=== PATIENT | female | born 1990 | race Caucasian/White ===

== ENCOUNTER → 2023-01-20 | Outpatient (CLI) | payer OTHER | LOC: M RAD 15:02 | PROVIDERS: ATTEND Psychiatry & Neurology Neurology | DX: M71.21 Synovial cyst of popliteal space [Baker], right knee (principal); R20.2 Paresthesia of skin; R53.1 Weakness ==

== ENCOUNTER 2023-03-26 23:28 | Emergency (ER) | payer OTHER ==
[~2023-03-26] VITALS: Ht 160 cm; Wt 76.1 kg
[2023-03-26 23:29] VITALS: BP 113/78
== END 2023-03-27 00:02 | disposition left against medical advice (07) ==
LOC: M ED 23:28
DX: Z53.21 Procedure and treatment not carried out due to patient leaving prior to being seen by health care provider (principal)

== ENCOUNTER 2023-12-05 08:04 | Day surgery (SDC) | payer OTHER ==
[~2023-12-05] VITALS: Ht 160 cm; Wt 77.2 kg
[~2023-12-05 08:04] MED LIST: AMIT25TA19 PO; D 50CAP2 PO; DULO1CAP6 PO; GABA-282 PO; LINZ72CA PO; NS 1,000 ML IV ONE; OMEP-173 PO; TRAZ-252 PO; [UNRECOGNIZED DRUG - CODE]
[2023-12-05] MEDS ORDERED: propofoL 200 MG/20 ML VIAL As Ordered ONE ×2 (08:12→09:25)
[2023-12-05 09:42] VITALS: TEMP 96.8
[2023-12-05 10:26] VITALS: BP 116/61; O2SAT 98
== END 2023-12-05 10:28 | disposition home or self-care (01) ==
LOC: M OPP 08:04
PROVIDERS: ATTEND Internal Medicine Gastroenterology
DX: K51.40 Inflammatory polyps of colon without complications (principal); K59.00 Constipation, unspecified; K64.4 Residual hemorrhoidal skin tags; K64.8 Other hemorrhoids; R19.5 Other fecal abnormalities; Z79.1 Long term (current) use of non-steroidal anti-inflammatories (NSAID); Z79.2 Long term (current) use of antibiotics; Z79.891 Long term (current) use of opiate analgesic; Z79.899 Other long term (current) drug therapy; Z87.891 Personal history of nicotine dependence

== ENCOUNTER → 2024-02-16 | Outpatient (REF) | payer OTHER ==
[~2024-02-16] MED LIST changes: -NS 1,000 ML IV ONE
== END ==
LOC: M SFHCRHEU 09:13
PROVIDERS: ATTEND Internal Medicine Rheumatology
DX: R76.8 Other specified abnormal immunological findings in serum (principal); R52 Pain, unspecified; R21 Rash and other nonspecific skin eruption; R20.0 Anesthesia of skin; R68.2 Dry mouth, unspecified

== ENCOUNTER → 2024-02-21 | Outpatient (REF) | payer OTHER ==
[2024-02-21 17:11] LABS: BASO # 0.1 10^3/uL (0.0-0.2); BASO % 1.3 % (0.0-1.0); EOS # 0.2 10^3/uL (0.0-0.5); EOS % 2.3 % (0.0-3.0); HEMATOCRIT 38.9 % (36.0-47.0); HEMOGLOBIN 12.3 g/dl (12.0-15.5); LYMPH # 3.7 10^3/uL (1.5-5.0); LYMPH % 42.2 % (24.0-44.0); MEAN CORPUSCULAR HEMOGLOBIN 26.3 pg (27.0-33.0); MEAN CORPUSCULAR HGB CONC 31.6 g/dl (32.0-36.5); MEAN CORPUSCULAR VOLUME 83.3 fl (80.0-96.0); MONO # 0.7 10^3/uL (0.0-0.8); MONO % 7.5 % (2.0-8.0); NEUTROPHILS % 46.5 % (36.0-66.0); PLATELET COUNT, AUTOMATED 269 10^3/uL (150-450); RED BLOOD COUNT 4.67 10^6/uL (4.00-5.40); WHITE BLOOD COUNT 8.6 10^3/uL (4.0-10.0)
[2024-02-21 17:20] LABS: ERYTHROCYTE SEDIMENTATION RATE 14 mm/hr (0-20)
[2024-02-21 17:31] LABS: C REACTIVE PROTEIN QUANTITATIV < 0.40 MG/DL (<1.0)
[2024-02-21 17:32] LABS: CPK CREATINE PHOSPHOKINASE 670 U/L (34-145); LDH LACTATE DEHYDROGENASE 149 U/L (120-246)
[2024-02-21 17:33] LABS: ALBUMIN 3.8 G/DL (3.2-5.2); ALKALINE PHOSPHATASE 58 U/L (46-116); ALT/SGPT 12 U/L (7.0-40); AST/SGOT 13 U/L (<34); BILIRUBIN,TOTAL 0.4 MG/DL (0.3-1.2); BLOOD UREA NITROGEN 15 MG/DL (9-23); CALCIUM LEVEL 9.6 MG/DL (8.5-10.1); CARBON DIOXIDE LEVEL 28 MMOL/L (20-31); CHLORIDE LEVEL 105 MMOL/L (98-107); CREATININE FOR GFR 0.67 MG/DL (0.55-1.30); GLOMERULAR FILTRATION RATE > 60.0 (>60); GLUCOSE, FASTING 53 MG/DL (60-100); IMMUNOGLOBULIN A 302.6 MG/DL (40-350); POTASSIUM SERUM 3.9 MMOL/L (3.5-5.1); SODIUM LEVEL 141 MMOL/L (136-145); TOTAL PROTEIN 7.3 G/DL (5.7-8.2)
[2024-02-21 17:34] LABS: COMPLEMENT C3 151.8 MG/DL (84.0-160.0); COMPLEMENT C4 22.6 MG/DL (12-36); IMMUNOGLOBULIN G 1590 MG/DL (650-1600)
[2024-02-22 10:41] LABS: APPEARANCE, URINE HAZY (CLEAR); BACTERIA, URINE AUTO NEGATIVE (NEGATIVE); BILIRUBIN, URINE AUTO NEGATIVE (NEGATIVE); BLOOD, URINE BLOOD 2+ (NEGATIVE); COLOR, URINE YELLOW (YELLOW); GLUCOSE, URINE (UA) AUTO NEGATIVE (NEGATIVE); KETONE, URINE AUTO NEGATIVE (NEGATIVE); LEUKOCYTE ESTERASE, URINE AUTO NEGATIVE (NEGATIVE); MUCUS, URINE SMALL (NEGATIVE); NITRITE, URINE AUTO NEGATIVE (NEGATIVE); PROTEIN, URINE AUTO NEGATIVE (NEGATIVE); RBC, URINE AUTO 2 /HPF (0-3); SPECIFIC GRAVITY URINE AUTO 1.016 (1.002-1.035); SQUAMOUS EPITHELIAL CELL UR AU 4 /HPF (0-6); WBC, URINE AUTO 1 /HPF (0-3)
[2024-02-22 11:19] LABS: CREATININE,RANDOM URINE 113.3 MG/DL
[2024-02-24 14:16] LABS: ALDOLASE 4.3 U/L (3.3-10.3); COMPLEMENT TOTAL (CH50) 60 U/mL (>41)
== END ==
LOC: M SFHCRHEU 11:51
PROVIDERS: ATTEND Internal Medicine Rheumatology
DX: R76.8 Other specified abnormal immunological findings in serum (principal); R52 Pain, unspecified; R21 Rash and other nonspecific skin eruption; R20.0 Anesthesia of skin; R68.2 Dry mouth, unspecified

== ENCOUNTER 2024-03-22 09:46 | Day surgery (SDC) | payer OTHER ==
[~2024-03-22] VITALS: Ht 160 cm; Wt 78.0 kg
[~2024-03-22 09:46] MED LIST changes: +PANT40TA29 PO; +TIZA10TA PO; +TRAM50TA2 PO
[2024-03-22] MEDS: NS 1,000 ML IV ONE (10:33)
[2024-03-22] MEDS ORDERED: propofoL 200 MG/20 ML VIAL As Ordered ONE (11:24)
[2024-03-22 11:42] VITALS: TEMP 97.1
[2024-03-22 12:00] VITALS: BP 129/77; O2SAT 97
== END 2024-03-22 12:45 | disposition home or self-care (01) ==
LOC: M OPP 09:46
PROVIDERS: ATTEND Internal Medicine Gastroenterology
DX: K21.00 Gastro-esophageal reflux disease with esophagitis, without bleeding (principal); R13.10 Dysphagia, unspecified; K29.50 Unspecified chronic gastritis without bleeding; B96.81 Helicobacter pylori [H. pylori] as the cause of diseases classified elsewhere; R10.13 Epigastric pain; K58.9 Irritable bowel syndrome, unspecified; Z79.899 Other long term (current) drug therapy

== ENCOUNTER → 2024-05-10 | Outpatient (CLI) | payer OTHER | LOC: M RAD 14:00 | PROVIDERS: ATTEND Internal Medicine Rheumatology | DX: M35.01 Sjogren syndrome with keratoconjunctivitis (principal) ==

== ENCOUNTER → 2024-05-23 | Outpatient (CLI) | payer OTHER | LOC: M RAD 08:20 | PROVIDERS: ATTEND Psychiatry & Neurology Neurology | DX: G43.709 Chronic migraine without aura, not intractable, without status migrainosus (principal) ==

== ENCOUNTER → 2024-06-17 | Outpatient (CLI) | payer OTHER | LOC: M CARPUL 13:03 | PROVIDERS: ATTEND Internal Medicine Rheumatology | DX: M35.01 Sjogren syndrome with keratoconjunctivitis (principal) ==